=== PATIENT | male | born 1995 | race Caucasian/White ===

== ENCOUNTER 2016-05-02 19:28 | Emergency (ER) | payer BC ==
[2016-05-02 19:55] VITALS: BP 145/67
[2016-05-02] MEDS ORDERED: Azithromycin TAB* 250 MG PO ONE (20:12)
--- NOTE | 2016-05-02 20:43 | UC ---
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 SINCE INJURY HAS HAD INCREASING REDNESS AND SWELLING TO SITE OF INJURY. NO DISCHARGE. LAST TETANUS LESS THAN 5 YRS AGO - History of Current Complaint Chief Complaint: UCWounds Time Seen by Provider: 05/02/16 20:04 Stated Complaint: FINGER LAC INFLAMED Hx Obtained From: Patient Onset/Duration: Sudden Onset, Lasting Days, Still Present Skin Exposure Onset/Duration: Days Ago Onset Severity: Mild Current Severity: Mild Location: Discrete - LEFT 3RD FINGER Character: Swelling, Pain, Redness Aggravating: Nothing Alleviating: Nothing Associated Signs & Symptoms: Positive: Tenderness. Negative: Fever, Chills, Hoarseness, Throat Tightening, Rash, Drainage, Bruising, Red Streaks, Joint Swelling Related History: Trauma - Allergy/Home Medications Allergies/Adverse Reactions: Allergies Allergy/AdvReac Type Severity Reaction Status Date / Time Amoxicillin Allergy Unknown Verified 05/02/16 19:54 Reaction Details Penicillins Allergy Unknown Verified 05/02/16 19:54 Reaction Details Review of Systems Constitutional: Negative Skin: Other - TWO DAY OLD 1 CM LACERATION TO DORSAL LEFT 3RD DISTAL FINGER WITH SURROUNDING ERRETHEMA AND EDEMA AT WOUND SITE Eyes: Negative ENT: Negative Respiratory: Negative Cardiovascular: Negative Gastrointestinal: Negative Genitourinary: Negative Motor: Negative Neurovascular: Negative Musculoskeletal: Negative Neurological: Negative Psychological: Negative All Other Systems Reviewed And Are Negative: Yes PMH/Surg Hx/FS Hx/Imm Hx Previously Healthy: Yes - Surgical History Surgical History: None - Family History Known Family History: Negative: Blood Disorder - Social History Occupation: Employed Full-time Lives: With Family Alcohol Use: Occasionally Substance Use Type: Marijuana Substance Use Comment - Amount & Last Used: 4x/week Smoking Status (MU): Current Some Day Smoker - Immunization History Most Recent Tetanus Shot: UNKNOWN Physical Exam Triage Information Reviewed: Yes Appearance: Well-Appearing, No Pain Distress, Well-Nourished Vital Signs: Initial Vital Signs Temp 99.2 F 05/02/16 19:51 Pulse 60 05/02/16 19:51 Resp 16 05/02/16 19:51 BP 145/67 05/02/16 19:51 Pulse Ox 99 05/02/16 19:51 Vital Signs Reviewed: Yes Eye Exam: Normal Eyes: Positive: Conjunctiva Clear ENT Exam: Normal ENT: Positive: Normal ENT inspection, Hearing grossly normal, TMs normal Dental Exam: Normal Neck exam: Normal Respiratory Exam: Normal Respiratory: Positive: Chest non-tender, Lungs clear, Normal breath sounds, No respiratory distress, No accessory muscle use Cardiovascular Exam: Normal Cardiovascular: Positive: RRR, No Murmur Abdominal Exam: Normal Abdomen Description: Positive: Nontender, No Organomegaly Musculoskeletal Exam: Normal Musculoskeletal: Positive: Strength Intact, ROM Intact, Edema @ - LEFT DISTAL 3RD FINGER Neurological Exam: Normal Psychological Exam: Normal Skin: Positive: Other - TWO DAY OLD 1 CM LACERATION TO DORSAL LEFT 3RD DISTAL FINGER WITH SURROUNDING ERRETHEMA AND EDEMA AT WOUND SITE Course/Dx - Diagnoses Provider Diagnoses: CELLULITIS LEFT THIRD FINGER. OLD LACERATION LEFT THIRD FINGER, NO CLOSURE Discharge - Discharge Plan Condition: Stable Disposition: HOME Prescriptions: Azithromycin TAB* [Zithromax TAB (Z-KETAN) 250 mg #6 tabs] 250 mg PO DAILY #4 tab Patient Education Materials: Cellulitis (ED) Referrals: Trevon George MD [Primary Care Provider] - Images Hands: 1 - TWO DAY OLD 1 CM LACERATION TO DORSAL LEFT 3RD DISTAL FINGER WITH SURROUNDING ERRETHEMA AND EDEMA AT WOUND SITE
== END 2016-05-02 20:22 | disposition home or self-care (01) ==
LOC: UCEAST 19:28
DX: S61.213S Laceration without foreign body of left middle finger without damage to nail, sequela (principal); L03.012 Cellulitis of left finger; W45.8XXS Other foreign body or object entering through skin, sequela; Y92.511 Restaurant or cafe as the place of occurrence of the external cause; Y99.0 Civilian activity done for income or pay; R03.0 Elevated blood-pressure reading, without diagnosis of hypertension; Z88.0 Allergy status to penicillin; F12.90 Cannabis use, unspecified, uncomplicated
CPT/HCPCS: 99212; A9270-GY; G0463